=== PATIENT | male | born 1995 | race Caucasian/White ===

== ENCOUNTER 2025-08-27 16:30 | Emergency (ER) | payer OTHER, SELFPAY ==
[2025-08-27 16:57] VITALS: BP 158/100; PULSE 77; RESP 17; TEMP 36.6; O2SAT 98; BMI 23.7
--- OUTSIDE RECORDS SUMMARY | 2025-08-27 17:08 | XMS_ITS | Clinical Summary ---
Author Organization [facility] Address [address] 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
--- OUTSIDE RECORDS SUMMARY | 2025-08-27 17:08 | XMS_ITS | Clinical Summary ---
Author Organization [facility] Address [address] [place] [address] Phone Care Team Providers Care Linux Devops Engineer Name Role Phone Unavailable Primary Care Provider Unavailabl e Social History Tobacco Use Types Packs/Day Years Used Date Smoking Tobacco: Never Assessed Sex and Gender Information Value Date Recorded Sex Assigned at Not on file Legal Sex Male 3:19 PM CDT Gender Identity Not on file Sexual Orientation Not on file Plan of Treatment Not on file
--- OUTSIDE RECORDS SUMMARY | 2025-08-27 17:08 | XMS_ITS | Clinical Summary ---
Author Organization [facility] Address [address] [place] [address] Phone Care Team Providers Care Historian Research Assistant Name Role Phone Unavailable Primary Care Provider Unavailabl e Allergies No known active allergies Medications aspirin (ECOTRIN EC) 81 mg Tablet, Delayed Release (E.C.) Take 1 Tab by mouth daily. 100 Tab 0 02/04/2014 Active ciprofloxacin (CIPRO) 500 mg tablet Take 1 Tab by mouth every 12 hours. 18 Tab 0 02/04/2014 Active oxyCODONE-aceta minophen (PERCOCET) 5-325 mg tablet Take 1 Tab by mouth every 4 hours as needed for Pain, Moderate (For Pain Scale 4-6). 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, disvascular Social History Tobacco Use Types Packs/Day Years Used Date Smoking Tobacco: Never Assessed Sex and Gender Information Value Date Recorded Sex Assigned at Not on file Legal Sex Male 10:25 PM CDT Gender Identity Not on file Sexual Orientation Not on file Last Filed Vital Signs Vital Sign Reading Time Taken Comments Blood Pressure 127/81 02/05/2014 7:07 AM CDT Pulse 61 02/05/2014 7:07 AM CDT Temperature 36.1 C (97 F) 02/05/2014 7:07 AM CDT Respiratory Rate 20 02/05/2014 7:07 AM CDT Oxygen Saturation 100% 02/05/2014 7:07 AM CDT Inhaled Oxygen Concentration - - Weight 71.8 kg (158 lb 3.2 oz) 02/03/2014 4:05 A M CDT Height 188 cm (6' 2 ) 02/03/2014 4:05 AM CDT Body Mass Index 20.31 02/03/2014 4:05 AM CDT Plan of Treatment Health Maintenance Due Date Last Done Comments DTAP/TDAP/TD VACCINES (1 - Tdap) 02/17/2012 HEPATITIS B VACCINES (1 of 3 - 19+ 3-dose series) 03/2012 INFLUENZA VACCINE (#1) 2025 HPV VACCINES (No Doses Required) Completed Insurance [facility] Advance Directives For more information, please contact: [phone] * Full Code (Latest Code Status on File) Date Activated Date Inactivated Comments 02/03/2014 4:05 AM 02/05/2014 1:19 PM * Full Code Date Activated Date Inactivated Comments 02/03/2014 2:31 AM 02/03/2014 4:05 AM
--- NOTE | 2025-08-27 17:16 | W.ED.ANIMALB ---
HPI - Animal Bite General: Chief Complaint: Animal Bite Stated Complaint: possible rabies exposure Time Seen by Provider: 08/27/25 17:16 History of Present Illness: This is a healthy 30-year-old male who presents emergency room after concern for rabies exposure. His is a field staff manager and they went to check on a sick course. He and his both feel the horse displayed signs of rabies. Foaming at the mouth. They had quite a bit of exposure to frothy sputum. He has never been vaccinated. The owners of the animal will not put it down for testing. Related Data Allergies Allergy/AdvReac Type Severity Reaction Status Date / Time No Known Allergies Allergy Verified 08/27/25 17:06 Review of Systems Narrative: Constitutional symptoms: Negative except as documented in HPI. Skin symptoms: Negative except as documented in HPI. Eye symptoms: Negative except as documented in HPI. ENMT symptoms: Negative except as documented in HPI. Respiratory symptoms: Negative except as documented in HPI. Cardiovascular symptoms: Negative except as documented in HPI. Gastrointestinal symptoms: Negative except as documented in HPI. Genitourinary symptoms: Negative except as documented in HPI. Musculoskeletal symptoms: Negative except as documented in HPI. Neurologic symptoms: Negative except as documented in HPI. Psychiatric symptoms: Negative except as documented in HPI. Endocrine symptoms: Negative except as documented in HPI. Physical Exam Narrative: EXAM NARRATIVE: General: Alert, no acute distress. Skin: warm and dry Head: Normocephalic Neck: Trachea midline Eye: Extraocular movements are intact. Ears, nose, mouth and throat: Oral mucosa moist Respiratory: Respirations are non-labored Musculoskeletal: Normal ROM Gastrointestinal: Abdomen does not appear distended Neurological: Alert and oriented, No focal neurological deficit observed. Psychiatric: Cooperative, appropriate mood & affect. Course Vital Signs: Vital signs: Vital Signs Temperature 97.8 F 08/27/25 16:57 Pulse Rate 77 08/27/25 16:57 Respiratory Rate 17 08/27/25 16:57 Blood Pressure 158/100 08/27/25 16:57 Pulse Oximetry 98 08/27/25 16:57 Oxygen Delivery Me thod Room Air 08/27/25 16:57 MDM - Animal Bite Medical Decision Making Medical decision making Patient's reason for coming to the emergency room: Possible rabies exposure Social determinants: Patient is employed. He is . His is here with him. I reviewed the patient's medical record. Patient has had no previous visits to this institution. I reviewed the patient's current home meds Patient takes no chronic medications. Alternate historians: None Differential diagnosis: including but not limited to and based on the above HPI, review of systems and physical exam: In this patient with concern for rabies exposure with no previous rabies vaccination we will give him the full rabies series. Assessment and plan: Possible rabies exposure ?Immunoglobulin and vaccine given today. - Discharged home - Discussed plan with patient. Answered any questions. - Evaluation and treatment of this problem were appropriate in the emergency setting. No radiology studies performed this visit Discharge Plan Discharge Patient Disposition: Home Clinical Impression: Need for post exposure prophylaxis for rabies Condition: Stable Discharge Orders: Discharge ED (Routine); Ordered 08/27/25 Ordered By: Kelly Covington Discharge Diet: Usual diet Discharge Activity: Increase activity as tolerated Patient Instructions: Rabies Vaccine (By injection), Rabies Immune Globulin (By injection), Rabies (ED), Opioid Safety, Pain Management, Patient Portal & Jose Instructions Activity Restrictions/Additional Instructions: Please return for rabies series as instructed. Thank you for choosing [facility] for your healthcare needs today. You have been screened and evaluated and felt safe for discharge. Health conditions do change or evolve sometimes and as such it is important that you follow up with your Primary Doctor to be re checked, 3-5 days is a general good time frame for follow up. You are always welcome to return to the ED for re assessment if your symptoms are worsening or you have new concerns. (Please note that included in your discharge packet is information concerning opioid safety and pain management. This information is given to all patients who are discharged from the ER regardless of their discharge diagnosis or the medicines they usually take or are prescribed.) Print Language: Dominican Coding Level of Care Code ED Manager Life for Katja Wang
[2025-08-27] MEDS: rabies IG 300 unit/mL SDV 1 mL 1620 UNIT IM (17:45)
[2025-08-27] MEDS: rabies vaccine 2.5 unit SDV IM (17:47)
== END 2025-08-27 18:35 | disposition home or self-care (01) ==
PROVIDERS: Emergency Provider Emergency Medicine
DX: Z20.3 Contact with and (suspected) exposure to rabies (principal); Z23 Encounter for immunization; Z29.14 Encounter for prophylactic rabies immune globulin
CPT/HCPCS: 90375; 90675; 99283

== ENCOUNTER 2025-09-10 09:30 | Oncology outpatient (recurring) (ONCR) | payer OTHER, SELFPAY ==
[2025-08-30] MEDS: rabies vaccine 2.5 unit SDV IM (09:00)
[2025-09-03] MEDS: rabies vaccine 2.5 unit SDV IM (09:52)
== END 2025-09-11 23:59 | disposition home or self-care (01) ==
PROVIDERS: Visit Provider Emergency Medicine
DX: Z53.9 Procedure and treatment not carried out, unspecified reason (principal)
CPT/HCPCS: 90471; 90675